=== PATIENT | male | born 1995 | race Caucasian/White ===

== ENCOUNTER 2017-04-20 08:06 | Emergency (ER) | payer BC ==
[~2017-04-20] VITALS: Ht 200.7 cm; Wt 88.6 kg
[2017-04-20 08:08] VITALS: TEMP 36.7; Ht 200.7 cm; Wt 88.6 kg
[2017-04-20] MEDS ORDERED: XYLOCAINE 1%/SOD BICARB 20 ML VIAL INFIL ONE (08:12)
[2017-04-20] MEDS ORDERED: LIDO/EPINEPHRINE/SOD BICARB 20 ML VIAL INFIL ONE (08:29)
[2017-04-20] MEDS ORDERED: LIDOCAINE/EPINEPHRINE 1% 20 ML VIAL INFIL ONE (08:30)
--- NOTE | 2017-04-20 09:01 | EMERGENCY ROOM VISIT NOTE ---
ED Visit Note First contact with patient: 08:12 CHIEF COMPLAINT: Hand laceration HISTORY OF PRESENT ILLNESS: This 21-year-old, left-hand dominant male patient presents to the emergency department approximally 1/2 hour after cutting the dorsal aspect of the left hand overlying the MCP joint of the fifth digit on glass. The patient states he was wiping the mere after he got out of the shower , and the mirror fell down on him, shattering, and slicing his left hand. The bleeding has stopped. Denies weakness or numbness of the hand or fingers. The patient rates the pain as throbbing and 1/10. The patient also complains of a more superficial laceration on the right thumb, anterior aspect, which appears to have avulsed a piece of the skin off. He noticed that this continues to bleed, however does not appear to be deep. The patient denies any other injuries. The patient's Tetanus shot is up to date. REVIEW OF SYSTEMS: A 6 system review of systems was completed with positives and pertinent negatives listed in the HPI. ALLERGIES: Penicillin MEDICATIONS: None PMH: None SOCIAL HISTORY: The patient is a [employer] student. He lives locally with his roommates. The patient denies drug, alcohol, tobacco use. PHYSICAL EXAM: Vital Signs: Reviewed Nurse's notes, vital signs stable. GENERAL : This is a 21-year-old white male, in no acute distress, well-developed, well- nourished. SKIN: There is a 1 cm long laceration on the dorsal aspect of the left hand overlying the 5th MCP joint.. The edges gape apart with traction. There is no foreign material in the wound and it looks clean. There is no active bleeding. No deep structures such as tendons, bones, or significant blood vessels are seen in the base of the wound. Normal strength and movement of the fingers and wrist. Capillary refill less than 2 seconds. Normal sensation to light and sharp touch. EMERGENCY DEPARTMENT COURSE: I examined the patient. The procedure was performed by our PA student under my direct supervision. Verbal consent was obtained to perform the procedure. Using sterile technique the wound was cleansed with Betadine. The area was sterilely draped. 2 ml of 1% lidocaine with epinephrine was used to anesthetize the laceration on the hand. Once the patient was anesthetized, the wound was copiously irrigated under pressure with sterile saline. The wound was explored and was as described above. The laceration was repaired using 3 simple interrupted 4-0 nylon sutures with the wound edges being well approximated. The patient tolerated the procedure well. Hemostasis was achieved. The area was cleaned with sterile saline and dressed with bacitracin ointment and bandage. The wound on the right thumb was cleaned with sterile saline and dressed with bacitracin ointment and a bulky bandage. The patient was discharged home in good condition. I attest that I have personally reviewed the patient's current medication list. Patient was found to have normal blood pressure on screening and does not require follow-up. DIFFERENTIAL DIAGNOSIS: Laceration, contusion, fracture, and others DIAGNOSIS: Hand laceration Problem List Medical Problems: (1) Hypokalemia Status: Resolved Current/Historical Medications No Active Prescriptions or Reported Meds Allergies Uncoded Allergies: PENICILLIN (Allergy, Mild, RASH, 12/07/15) Vital Signs Date Time Temp Pulse Resp B/P (MAP) Pulse Ox O2 Delivery O2 Flow Rate FiO2 04/20/17 09:06 72 16 135/64 97 04/20/17 08:08 36.7 89 18 150/85 97 Room Air Medications Administered Medications (Trade) Dose Ordered Sig/Dante Route Start Time Stop Time Status Last Admin Dose Admin Lidocaine/ Epinephrine (Buffered Xylocaine/ Epinephrine 1% Inj) 20 ml STK-MED ONCE INFIL 04/20/17 08:29 04/20/17 08:30 DC 04/20/17 08:29 20 ML Departure Information Impression Primary Impression: Laceration of hand Additional Impression: Laceration of right thumb Dispostion Home / Self-Care Condition GOOD Prescriptions No Active Prescriptions or Reported Meds Referrals [facility] (PCP) Patient Instructions ED Laceration Ext Sutr Stap Tape, [facility] Additional Instructions You have received 3 sutures on your left hand. These sutures are NOT dissolvable and WILL need to be removed by a health care provider in 10-12 days. You can return to the Emergency Department or contact your Primary Care Provider to have the sutures removed. Proper wound care is essential for adequate wound healing and infection prevention. You can shower and clean the wound with soap and water. Do not scour over the wound, pat dry with a towel. Do not submerse the wound (i.e. bathe or dish wash) until the sutures have been removed. You can use an antibiotic ointment with a dressing over the wound for the next 3-4 days. After this time you may leave the wound dry and open to the air. If crust develops over the wound you can use a Q-tip to apply a 1:1 peroxide:water solution to clean the wound. Keep the wound on the right thumb covered for the next 24-48 hours. You may remove and change the bandage if it becomes dirty or saturated. Look for signs of infection of the wound including: increased pain, swelling, foul discharge, streaking, or increased temperature. If any of these are noticed you should return to the Emergency Department for further assessment and treatment. As with any laceration you may have received nerve damage to the surrounding tissues. This damage may or may not be permanent. You should keep the area covered with sunscreen for the first 6 months to 1 year when at risk for exposure to help minimize scarring. You can also use scar reducing creams or Vitamin E oil to help minimize scarring. For pain control, you can use the following uurj-bbi-hmugdzj medicines (if >12 yo): Ibuprofen(Motrin, Advil) may be used for fever or pain. Use 600mg every six hours as needed. Take with food. Avoid using more than 2400mg in a 24 hour period. Do not use 2400mg per day for more than three consecutive days without physician direction. Prolonged inappropriate use can lead to stomach upset or ulcers. (AND/OR) Acetaminophen(Tylenol) may be used for fever or pain. Use 1000mg every six hours as needed. Avoid using more than 3000mg in a 24 hour period. Return to the emergency department if your symptoms worsen despite treatment course outlined above. Problem Qualifiers Primary Impression: Laceration of hand Encounter type: initial encounter Foreign body presence: without foreign body Laterality: left Qualified Codes: S61.412A - Laceration without foreign body of left hand, initial encounter Additional Impression: Laceration of right thumb Encounter type: initial encounter Damage to nail status: without damage Foreign body presence: without foreign body Qualified Codes: S61.011A - Laceration without foreign body of right thumb without damage to nail, initial encounter
[2017-04-20 09:06] VITALS: BP 135/64; PULSE 72; O2SAT 97
== END 2017-04-20 09:07 | disposition home or self-care (01) ==
LOC: EDUNIT# 08:06 → C.EDB 08:08 → C.EDA 09:07
DX: S61.412A Laceration without foreign body of left hand, initial encounter (principal); S61.011A Laceration without foreign body of right thumb without damage to nail, initial encounter; W20.8XXA Other cause of strike by thrown, projected or falling object, initial encounter

== ENCOUNTER 2017-05-17 23:54 | Emergency (ER) | payer BC ==
[~2017-05-17] VITALS: Ht 200.7 cm; Wt 88.0 kg
[2017-05-18 00:03] VITALS: Ht 200.7 cm; Wt 88.0 kg
[2017-05-18 01:28] LABS: BASO % 0.3 %; BASO ABS # 0.02 K/uL (0-0.2); EOS % 4.4 %; EOS ABS # 0.28 K/uL (0-0.5); HEMATOCRIT 41.1 % (42-52); HEMOGLOBIN 15.1 g/dL (14.0-18.0); IG# 0.01 K/uL (0.00-0.02); LYMPH % 36.5 %; LYMPH ABS # 2.31 K/uL (1.2-3.4); MEAN CELL VOLUME 88.6 fL (80-100); MEAN CORPUSCULAR HEMOGLOBIN 32.5 pg (25-34); MEAN CORPUSCULAR HGB CONC 36.7 g/dl (32-36); MEAN PLATELET VOLUME 11.6 fL (7.4-10.4); MONO % 8.7 %; MONO ABS # 0.55 K/uL (0.11-0.59); NEUT % 49.9 %; NEUT ABS # 3.16 K/uL (1.4-6.5); PLATELET COUNT 136 K/uL (130-400); RED CELL DISTRIBUTION WIDTH CV 12.6 % (11.5-14.5); RED CELL DISTRIBUTION WIDTH SD 40.4 fL (36.4-46.3); WHITE BLOOD COUNT 6.33 K/uL (4.8-10.8)
[2017-05-18 01:45] LABS: CALCIUM 8.9 mg/dl (8.5-10.1); CREATININE 1.19 mg/dl (0.60-1.40); POTASSIUM 3.5 mmol/L (3.5-5.1)
--- NOTE | 2017-05-18 01:59 | EMERGENCY ROOM VISIT NOTE ---
History First contact with patient: 00:38 Chief Complaint: IRREGULAR HEARTBEAT Stated Complaint: IRREGULAR HEARTBEAT Nursing Triage Summary: pt complaining of palpitations at rest 45 minutes post work out. History of Present Illness The patient is a 21 year old male who presents to the Emergency Room with complaints of palpitations which occurred just prior to arrival. The patient reports that he was laying down in bed and felt that his heart was beating fast , slow down, then began to beat fast again. He states this lasted for approximately 20-25 minutes. He denies any chest pain or shortness of breath associated with the symptoms. The patient does report that he was doing some bodyweight exercises about 45 minutes prior to the symptoms. He denies any medical problems or family history of significant heart disease at a young age. He does report that he believes he has an uncle who had an abnormal heart rhythm and had a surgery done for this. He denies any drug use. He does admit to occasional alcohol use, but states that he has not drank for a few weeks. He reports eating and drinking normally today. He denies any recent illnesses or fevers/chills. The patient reports that he feels better at this time and complaints. Review of Systems A complete 10 point review of systems was reviewed with the patient with pertinent positives and negatives as per history of present illness. All else were negative. Past Medical/Surgical History Medical Problems: (1) Hypokalemia Family History Patient reports no known family medical history. Social History Smoking Status: Never Smoker Alcohol Use: occasionally Drug Use: none Housing Status: lives with roommate Occupation Status: [employer] student Current/Historical Medications No Active Prescriptions or Reported Meds Physical Exam Vital Signs Date Time Temp Pulse Resp B/P (MAP) Pulse Ox O2 Delivery O2 Flow Rate FiO2 05/18/17 02:47 36.6 70 16 136/73 98 Room Air 05/18/17 00:21 71 05/18/17 00:16 Room Air 05/18/17 00:03 36.7 84 16 155/93 98 Room Air Physical Exam VITALS: Vitals are noted on the nurse's note and reviewed by myself. Vital signs stable. GENERAL: This is a 21-year-old male, in no acute distress, nondiaphoretic, well- developed well-nourished. HEENT: Normocephalic. Tympanic membranes pearly flood bilaterally. PERRLA. EOMI. Mucous membranes moist. Neck is supple without nuchal rigidity. HEART: Regular rate and rhythm without murmurs gallops or rubs. LUNGS: Clear to auscultation bilaterally without wheezes, rales or rhonchi. NEURO: Patient was alert and oriented to person place and time. Medical Decision & Procedures Laboratory Results 05/18/17 01:22 Red Blood Count 4.64, Mean Corpuscular Volume 88.6, Mean Corpuscular Hemoglobin 32.5, Mean Corpuscular Hemoglobin Concent 36.7, Mean Platelet Volume 11.6, Neutrophils (%) (Auto) 49.9, Lymphocytes (%) (Auto) 36.5, Monocytes (%) (Auto) 8.7, Eosinophils (%) (Auto) 4.4, Basophils (%) (Auto) 0.3, Neutrophils # (Auto) 3.16, Lymphocytes # (Auto) 2.31, Monocytes # (Auto) 0.55, Eosinophils # (Auto) 0.28, Basophils # (Auto) 0.02 05/18/17 01:22 Test 05/18/17 01:22 White Blood Count 6.33 K/uL (4.8-10.8) Red Blood Count 4.64 M/uL (4.7-6.1) Hemoglobin 15.1 g/dL (14.0-18.0) Hematocrit 41.1 % (42-52) Mean Corpuscular Volume 88.6 fL (80-100) Mean Corpuscular Hemoglobin 32.5 pg (25-34) Mean Corpuscular Hemoglobin Concent 36.7 g/dl (32-36) Platelet Count 136 K/uL (130-400) Mean Platelet Volume 11.6 fL (7.4-10.4) Neutrophils (%) (Auto) 49.9 % Lymphocytes (%) (Auto) 36.5 % Monocytes (%) (Auto) 8.7 % Eosinophils (%) (Auto) 4.4 % Basophils (%) (Auto) 0.3 % Neutrophils # (Auto) 3.16 K/uL (1.4-6.5) Lymphocytes # (Auto) 2.31 K/uL (1.2-3.4) Monocytes # (Auto) 0.55 K/uL (0.11-0.59) Eosinophils # (Auto) 0.28 K/uL (0-0.5) Basophils # (Auto) 0.02 K/uL (0-0.2) RDW Standard Deviation 40.4 fL (36.4-46.3) RDW Coefficient of Variation 12.6 % (11.5-14.5) Immature Granulocyte % (Auto) 0.2 % Immature Granulocyte # (Auto) 0.01 K/uL (0.00-0.02) Anion Gap 7.0 mmol/L (3-11) Est Creatinine Clear Calc Drug Dose 121.2 ml/min Estimated GFR () 99.9 Estimated GFR (Non- 86.2 BUN/Creatinine Ratio 19.6 (10-20) Calcium Level 8.9 mg/dl (8.5-10.1) Troponin I 0.020 ng/ml (0-0.045) Thyroid Stimulating Hormone (TSH) 2.580 uIu/ml (0.300-4.500) ECG Indication: palpitations Rate (beats per minute): 67 Rhythm: normal sinus Findings: no acute ischemic change, no ectopy Change: no significant change Medical Decision Differential diagnosis includes anemia, hyperthyroidism, elect avoid abnormality , infection, anxiety, among others. The patient is a 21-year-old male who presents today complaining of palpitations which have resolved. Labs revealed no leukocytosis or anemia. No concerning electrolyte abnormalities. TSH indicates a euthyroid state. EKG was interpreted by myself and shows a normal sinus rhythm without ischemia or ectopy. Patient was placed on the nougat cutter machine throughout her stay and had no return of symptoms. He was advised that he will need close follow-up with his primary care provider/[facility] services for further evaluation of symptoms. He should return here for worsening or new/concerning symptoms. Based on the patient's presentation and work up, I feel the patient is stable for outpatient treatment. The patient was educated to return to the emergency department for any worsening of their current condition or new/concerning symptoms. He will follow up with [facility]. Medication Reconcilliation Current Medication List: was personally reviewed by me Blood Pressure Screening Patient's blood pressure: Normal blood pressure Impression Primary Impression: Palpitations Departure Information Dispostion Home / Self-Care Condition GOOD Prescriptions No Active Prescriptions or Reported Meds Referrals No Doctor, Assigned (PCP) Patient Instructions My [facility] Additional Instructions Follow up with [facility] this week for recheck. Rest and drink plenty of fluids. Return to the emergency department with worsening palpitations, chest pain, shortness of breath, or any other new/concerning symptoms.
[2017-05-18 02:47] VITALS: BP 136/73; PULSE 70; TEMP 36.6; O2SAT 98
== END 2017-05-18 02:49 | disposition home or self-care (01) ==
LOC: C.EDB 23:57
DX: R00.2 Palpitations (principal)